=== PATIENT | male | born 1945 | race Hispanic/Latino ===

== ENCOUNTER 2016-03-05 12:11 | Outpatient (CLI) | payer MEDICARE, OTHER ==
[2016-03-05 14:22] LABS: #Basophils 0.1 thou/uL (0.0-0.2); #Eosinphils 0.3 thou/uL (0.0-0.7); #Lymphocytes 1.8 thou/uL (1.20-3.40); #Monocytes 0.4 thou/uL (0.11-0.59); #Neutrophils 3.8 thou/uL (1.40-6.50); %Basophils 1.4 % (0.0-1.0); %Eosinophils 4.2 % (0.0-10.0); %Lymphocytes 27.9 % (21.0-51.0); %Monocytes 6.5 % (0.0-10.0); Hematocrit 47.8 % (42.0-52.0); Mean Platelet Volume 8.1 fL (7.4-10.4); White Blood Cell (WBC) Count 6.3 thou/uL (4.8-10.8)
[2016-03-05 14:24] LABS: Bilirubin Negative (Negative); Blood, Urine Trace (Negative); Glucose, Urine (Dipstick) Negative (Negative); Ketone, Urine Negative (Negative); Nitrite Negative (Negative); Protein, Urine (Dipstick) 100 mg/dL (Neg-Trace); Urobilinogen 0.2 mg/dL (0.2-1.0)
[2016-03-05 14:26] LABS: ALT (SGPT) 25 U/L (0-55); AST (SGOT) 24 U/L (5-34); Alkaline Phosphatase 74 U/L (40-150); Anion Gap 16 mmol/L (10-20); BUN (Urea Nitrogen) 17 mg/dL (8.4-25.7); Bilirubin, Total 0.7 mg/dL (0.2-1.2); Calc. Creatinine Clearance 0 mL/min (70-130); Calcium 9.5 mg/dL (7.8-10.44); Carbon Dioxide 26 mmol/L (23-31); Chloride 103 mmol/L (98-107); Estimated GFR-MDRD 71; Globulin 3.1 g/dL (2.4-3.5); LDL Cholesterol, Calculated 140 mg/dL; Protein, Total 7.4 g/dL (5.8-8.1)
[2016-03-05 15:23] LABS: Bacteria/HPF Rare-Few HPF (None Seen); RBC/HPF 0-3 HPF (0-3); Squamous Epithelial 0-3 HPF (0-3); WBC/HPF 0-3 HPF (0-3)
== END 2016-03-05 12:12 ==
LOC: NAVSJIPCSP 12:11
PROVIDERS: ATTEND Internal Medicine
DX: M1A.0710 Idiopathic chronic gout, right ankle and foot, without tophus (tophi) (principal); R03.0 Elevated blood-pressure reading, without diagnosis of hypertension
CPT/HCPCS: 36415; 80053; 80061; 81003; 81015; 84443; 84550; 85025

== ENCOUNTER 2016-08-08 08:59 | Outpatient (CLI) | payer MEDICARE, OTHER | END 2016-08-08 09:00 | LOC: NAVSJIPCSP 08:59 | PROVIDERS: ATTEND Internal Medicine | DX: E03.1 Congenital hypothyroidism without goiter (principal) | CPT/HCPCS: 36415; 84443 ==

== ENCOUNTER 2016-09-25 12:50 | Outpatient (CLI) | payer MEDICARE, OTHER ==
[2016-09-25 13:58] LABS: #Basophils 0.1 thou/uL (0.0-0.2); #Eosinphils 0.3 thou/uL (0.0-0.7); #Lymphocytes 1.8 thou/uL (1.20-3.40); #Monocytes 0.4 thou/uL (0.11-0.59); #Neutrophils 3.8 thou/uL (1.40-6.50); %Basophils 1.7 % (0.0-1.0); %Lymphocytes 28.7 % (21.0-51.0); %Monocytes 6.1 % (0.0-10.0); %Neutrophils 59.5 % (42.0-75.0); Hemoglobin 15.2 g/dL (14.0-18.0); Mean Corpuscular HGB CONC 32.7 g/dL (32.0-36.0); Mean Corpuscular Volume 91.7 fl (80.0-94.0); Mean Platelet Volume 8.7 fL (7.4-10.4); Platelet Count 172 thou/uL (130-400); Red Blood Cell (RBC) Count 5.08 mill/uL (4.70-6.10); White Blood Cell (WBC) Count 6.4 thou/uL (4.8-10.8)
[2016-09-25 13:59] LABS: Bilirubin Negative (Negative); Blood, Urine Trace (Negative); Clarity Cloudy (Clear); Glucose, Urine (Dipstick) Negative (Negative); Leukocyte Negative (Negative); Nitrite Negative (Negative); Protein, Urine (Dipstick) 100 mg/dL (Neg-Trace); Specific Gravity, Urine 1.025 (1.005-1.030); Urobilinogen 0.2 mg/dL (0.2-1.0); pH, Urine 5.5 (5.0-9.0)
[2016-09-25 14:22] LABS: RBC/HPF 0-3 HPF (0-3); Squamous Epithelial None Seen HPF (0-3); WBC/HPF None Seen HPF (0-3)
[2016-09-25 14:23] LABS: Bacteria/HPF 1+ HPF (None Seen); Crystals/HPF 2+ AMORPH URATES HPF (Negative); Other Microscopic Description NO
== END 2016-09-25 12:51 | disposition home or self-care (01) ==
LOC: NAVSJIPCSP 12:50
PROVIDERS: ATTEND Internal Medicine
DX: N39.0 Urinary tract infection, site not specified (principal)
CPT/HCPCS: 36415; 81003; 81015; 85025; 87086